=== PATIENT | female | born 1985 | race Caucasian/White ===

== ENCOUNTER → 2023-04-28 08:22 | Outpatient (REF) | payer BC, SELFPAY | LOC: RAD 08:22 | PROVIDERS: ATTENDING PHYSICIAN Advanced Practice Midwife; FAMILY PHYSICIAN Family Medicine | DX: N92.6 Irregular menstruation, unspecified (principal) | CPT/HCPCS: 76830; 76856 ==

== ENCOUNTER → 2023-06-30 08:01 | Outpatient (REF) | payer BC, SELFPAY | LOC: WDC 08:01 | PROVIDERS: ATTENDING PHYSICIAN Surgery; FAMILY PHYSICIAN Family Medicine | DX: R92.2 Inconclusive mammogram (principal); Z80.3 Family history of malignant neoplasm of breast | CPT/HCPCS: 76641 ==

== ENCOUNTER → 2024-02-02 08:52 | Outpatient (REF) | payer BC, SELFPAY | LOC: WDC 08:52 | PROVIDERS: ATTENDING PHYSICIAN Surgery | DX: R92.8 Other abnormal and inconclusive findings on diagnostic imaging of breast (principal); Z12.31 Encounter for screening mammogram for malignant neoplasm of breast | CPT/HCPCS: 76642; 77063; 77067 ==

== ENCOUNTER → 2024-08-09 08:04 | Outpatient (REF) | payer BC, SELFPAY | LOC: WDC 08:04 | PROVIDERS: ATTENDING PHYSICIAN Surgery | DX: R92.8 Other abnormal and inconclusive findings on diagnostic imaging of breast (principal) | CPT/HCPCS: 76642 ==

== ENCOUNTER → 2025-02-17 07:43 | Outpatient (REF) | payer BC, SELFPAY | LOC: HWEVLT 07:43 | PROVIDERS: ATTENDING PHYSICIAN Radiology Vascular & Interventional Radiology | DX: I83.893 Varicose veins of bilateral lower extremities with other complications (principal) | CPT/HCPCS: 93970 ==